=== PATIENT | female | born 1970 | race Caucasian/White ===

== ENCOUNTER 2016-08-11 08:16 | Emergency (ER) | payer OTHER ==
[~2016-08-11] VITALS: Wt 91.0 kg
[~2016-08-11 08:16] MED LIST: HYDR-3498 PO; NAPR-260 PO
[2016-08-11] MEDS ORDERED: ONDANSETRON (ODT) 4 MG TAB ODT STA (10:15)
--- NOTE | 2016-08-11 10:23 | ERD ---
ER Documentation Chief Complaint Date/Time DATE: 08/11/16 TIME: 10:17 Chief Complaint R KNEE PAIN X 3 MONTHS HPI This patient is a 45-year-old female with history of type 2 diabetes and high cholesterol presenting for right knee pain ongoing intermittently for the past 3 months. The patient states it is a burning sensation. The pain is exacerbated by walking. The patient has never had an x-ray of the knee. The patient takes [id number]-[id number] medications with mild relief of symptoms. The patient denies any injury, trauma, inability to walk, numbness, tingling, or other symptoms at this time. ROS All systems reviewed and are negative except as per history of present illness. Medications Home Meds Active Scripts Naproxen* (Naprosyn*) 500 Mg Tablet, 500 MG PO BID Y for PAIN AND/OR INFLAMMATION, #20 TAB Prov:PAUL HAWTHORNE PA-C 08/11/16 Hydrocodone/Acetaminophen (Climax 5-325 Tablet) 1 Each Tablet, 1 TAB PO Q6H Y for PAIN, #7 TAB Prov:PAUL HAWTHORNE PA-C 08/11/16 Methylprednisolone* (Medrol* DOSE PACK) 4 Mg/Dose-Pack Tab.ds.pk, 4 MG PO . DIRECTED, #1 PACKET Prov:PAUL HAWTHORNE PA-C 08/11/16 Naproxen* (Naprosyn*) 500 Mg Tablet, 500 MG PO BID Y for PAIN AND/OR INFLAMMATION, #30 TAB Prov:SONAL REYES PA-C 11/19/15 Hydrocodone Bit-Acetaminophen* (Climax*) 5-325 Mg Tab, 1 TAB PO Q6 Y for PAIN, # 15 TAB Prov:SONAL REYES PA-C 11/19/15 Allergies Allergies: Coded Allergies: No Known Allergy (Unverified , 08/11/16) PMhx/Soc History of Surgery: No Anesthesia Reaction: No Hx Neurological Disorder: No Hx Respiratory Disorders: No Hx Cardiac Disorders: No Hx Psychiatric Problems: No Hx Miscellaneous Medical Probl: No Hx Alcohol Use: No Hx Substance Use: No Hx Tobacco Use: No Smoking Status: Never smoker FmHx Noncontributory for chief complaint Physical Exam Vitals Vital Signs Date Time Temp Pulse Resp B/P Pulse Ox O2 Delivery O2 Flow Rate FiO2 08/11/16 11:21 98.3 70 19 126/77 100 Room Air 08/11/16 08:19 98.0 77 18 145/74 99 Physical Exam INITIAL VITAL SIGNS: Reviewed by me. GENERAL: Obese body habitus. Alert and interactive. No acute distress. HEAD: Head is normocephalic and atraumatic. EYES: EOMI. No scleral icterus. No conjunctival injection. ENT: Moist mucosa. NECK: Supple. Full range of motion. RESPIRATORY: Normal respiratory effort. Clear breath sounds bilaterally. No wheezing, rales, or rhonchi. CV: Regular rate and rhythm. Normal S1 S2. No S3 or S4. No murmurs. ABDOMEN: Obese, soft, non-distended, non-tender. No guarding. No rebound. No masses. EXTREMITIES: No deformity. There is tenderness to palpation of the medial joint line of the right knee. There is decreased range of motion of the right knee secondary to pain. All other extremities are normal on exam. SKIN: Warm and dry. NEUROLOGIC: Alert and oriented x 4. Speech is normal. Moves all extremities equally. No motor or sensory deficits noted. Results 24 hrs Laboratory Tests Test 08/11/16 10:36 08/11/16 11:02 Bedside Urine Blood Negative Bedside Urine Glucose (UA) Negative Bedside Urine Ketones (LAB) Negative Bedside Urine Leukocyte Esterase (L Trace Bedside Urine Nitrite (LAB) Negative Bedside Urine Protein (LAB) 1+ Bedside Urine pH (LAB) 7.5 Bedside Glucose 94mg/dL Current Medications Medications (Trade) Dose Ordered Sig/Adelnie Route PRN Reason Start Time Stop Time Status Last Admin Dose Admin Acetaminophen/ Hydrocodone Bitart (Climax (5/325)) 1 tab ONCE ONCE PO 08/11/16 10:30 08/11/16 10:31 DC 08/11/16 10:30 Ondansetron HCl (Zofran Odt) 4 mg ONCE STAT ODT 08/11/16 10:15 08/11/16 10:17 DC 08/11/16 10:30 Procedures/MDM 45-year-old female presents secondary to complaints of right knee pain ongoing for the past 3 months. On physical examination the patient's vitals are within normal limits. Examination of the right knee reveals mild tenderness to palpation of the medial joint line. There is limited extension of the right knee secondary to pain. I have ordered an x-ray of the right knee. The patient was treated in the department with p.o. Climax and p.o. Zofran and was feeling improved on reevaluation. Accu-Chek in the department was 92. Radiology: PROCEDURE: Right knee x-ray CLINICAL INDICATION: Right knee pain. TECHNIQUE: AP and lateral views of the right knee were obtained. COMPARISON: No. FINDINGS: There are osteophytes off of the right medial femoral condyle. A small effusion is noted. The joint spaces are normal. IMPRESSION: 1. Osteoarthritis of the right knee with a small joint space effusion. RPTAT:AAJJ Physician Tray Date Time Electronically viewed and signed by Sen Bryan Physician on 08/11/2016 10:58 At this time I have low suspicion for septic joint, ACL tear, cellulitis, bursitis, septicemia, or other emergent conditions. The patient is stable for outpatient management. The patient was given prescriptions for naproxen, Climax , and Medrol Dosepak. The patient agrees with the diagnosis and discharge plan. The patient was advised to return to the department immediately with any new or worsening symptoms. The patient demonstrates understanding of this information. All questions and concerns were addressed and the patient was hemodynamically stable prior to discharge. The patient was given or so outpatient follow-up. Departure Diagnosis: Primary Impression: Knee pain Laterality: right Chronicity: chronic Qualified Code: M25.561 - Chronic pain of right knee Condition: Stable Patient Instructions: Knee Pain, Uncertain Cause Referrals: WIL BETHEA MD, GEORGE MD BARCOHANA, BABAK MD Additional Instructions: No mas mejor en 2-3 solomon, regresar. Mas peor en 24 horas, regresear rapidamente. Ir a doctor primario in 5-7 solomon. Usar instrucciones cuando eboni medicamento. PAUL HAWTHORNE PA-C Aug 11, 2016 10:23
[2016-08-11] MEDS ORDERED: HYDROCODONE/APAP (5/325) TAB PO ONE (10:30)
[2016-08-11 10:34] LABS: URINE BLOOD (Dip) POC Negative (NEGATIVE)
--- NOTE | 2016-08-11 10:59 | RADRPT ---
PROCEDURE: Right knee x-ray CLINICAL INDICATION: Right knee pain. TECHNIQUE: AP and lateral views of the right knee were obtained. COMPARISON: No. FINDINGS: There are osteophytes off of the right medial femoral condyle. A small effusion is noted. The join t spaces are normal. IMPRESSION: 1. Osteoarthritis of the right knee with a small joint space effusion. RPTAT:AAJJ Physician Tray Date Time Electronically viewed and signed by Sen Bryan Physician on 08/11/2016 10:58 CHANG/
[2016-08-11] MEDS ORDERED: NAPR-260 PO (11:08)
[2016-08-11] MEDS ORDERED: HYDR-906 PO (11:08)
[2016-08-11] MEDS ORDERED: MED4DP PO (11:08)
[2016-08-11 11:21] VITALS: BP 126/77; PULSE 70; RESP 19; TEMP 98.3
== END 2016-08-11 11:21 | disposition home or self-care (01) ==
LOC: FTE 08:16
DX: M25.561 Pain in right knee (principal); E11.9 Type 2 diabetes mellitus without complications; E66.9 Obesity, unspecified
CPT/HCPCS: 73562; 81003; 82962; Z7502; Z7610

== ENCOUNTER 2016-09-12 11:14 | Emergency (ER) | payer OTHER ==
[~2016-09-12] VITALS: Ht 154.9 cm; Wt 90.0 kg
[~2016-09-12 11:14] MED LIST changes: +HYDR-906 PO; +MED4DP PO
[2016-09-12 11:15] VITALS: Ht 154.9 cm; Wt 90.0 kg
--- NOTE | 2016-09-12 13:59 | RADRPT ---
PROCEDURE: XR Knee. CLINICAL INDICATION: Knee pain TECHNIQUE: Three views of the right knee are available for review. COMPARISON: 08/11/2016 FINDINGS: There is mild narrowing of the medial femorotibial compartment with subchondral sclerosis and small marginal osteophyte formation. The lateral and patellofemoral compartments are maintained. No radio graphic evidence for fracture. A large joint effusion is present. IMPRESSION: 1. Mild medial femorotibial compartment arthrosis. 2. No radiographic evidence for fracture. 3. Large joint effusion. If further detail is warranted, consider CT or MRI. RPTAT: VV .Jordan Oh MD, MD Date Time Electronically viewed and signed by .Jordan Oh MD, on 09/12/2016 13:58 .d/
[2016-09-12] MEDS ORDERED: NAPR-260 PO (14:10)
--- NOTE | 2016-09-12 14:33 | ERD ---
ER Documentation Chief Complaint Date/Time DATE: 09/12/16 TIME: 14:28 Chief Complaint right kneee pain x 2 days HPI Patient is a 46-year-old female who presents to the ED with right knee pain 2 days. She states that she does have pain in this knee in the past however states that 2 days ago her daughter was massaging her knee and she felt a pop in her knee. She states that she does have some pain with walking but is able to ambulate. She denies pain above or below her knee. Denies pain in her hip or ankle. Denies fever or chills. Denies redness. Denies hitting her head, passing out or losing consciousness. Denies radiation of pain. Denies leg swelling or leg erythema. Denies recent travel or recent surgeries or use of OCPs. Denies numbness or tingling. No other complaints. ROS All systems reviewed and are negative except as per history of present illness. Medications Home Meds Active Scripts Naproxen* (Naprosyn*) 500 Mg Tablet, 500 MG PO BID Y for PAIN AND/OR INFLAMMATION, #30 TAB Prov:SHYANNE COLEMAN PA-C 09/12/16 Naproxen* (Naprosyn*) 500 Mg Tablet, 500 MG PO BID Y for PAIN AND/OR INFLAMMATION, #20 TAB Prov:PAUL HAWTHORNE PA-C 08/11/16 Hydrocodone/Acetaminophen ([place] 5-325 Tablet) 1 Each Tablet, 1 TAB PO Q6H Y for PAIN, #7 TAB Prov:PAUL HAWTHORNE PA-C 08/11/16 Methylprednisolone* (Medrol* DOSE PACK) 4 Mg/Dose-Pack Tab.ds.pk, 4 MG PO . DIRECTED, #1 PACKET Prov:PAUL HAWTHORNE PA-C 08/11/16 Naproxen* (Naprosyn*) 500 Mg Tablet, 500 MG PO BID Y for PAIN AND/OR INFLAMMATION, #30 TAB Prov:SONAL REYES PA-C 11/19/15 Hydrocodone Bit-Acetaminophen* ([place]*) 5-325 Mg Tab, 1 TAB PO Q6 Y for PAIN, # 15 TAB Prov:SONAL REYES PA-C 11/19/15 Allergies Allergies: Coded Allergies: No Known Allergy (Unverified , 08/11/16) PMhx/Soc History of Surgery: No Anesthesia Reaction: No Hx Neurological Disorder: No Hx Respiratory Disorders: No Hx Cardiac Disorders: No Hx Psychiatric Problems: No Hx Miscellaneous Medical Probl: No Hx Alcohol Use: No Hx Substance Use: No Hx Tobacco Use: No Smoking Status: Never smoker FmHx Family History: No coronary disease, No diabetes, No other Physical Exam Vitals Vital Signs Date Time Temp Pulse Resp B/P Pulse Ox O2 Delivery O2 Flow Rate FiO2 09/12/16 11:15 98.1 89 18 138/78 99 Physical Exam GENERAL: Well-developed, well-nourished female. Appears in no acute distress. LUNG: Clear to auscultation bilaterally. No rhonchi, wheezing, rales or coarse breath sounds. HEART: Regular rate and rhythm. No murmurs, rubs or gallops. ORTHO: No redness to the right knee. Slight swelling. Negative Homans sign. No calf swelling or redness. No pain above or below the knee. Range of motion intact bilaterally. Pulses intact bilaterally. Extremities: Equal pulses bilaterally. No peripheral clubbing, cyanosis or edema. No unilateral leg swelling. NEUROLOGIC: Alert and oriented. Moving all four extremities. 5/5 strength in all extremities. Normal speech. Steady gait. SKIN: Normal color. Warm and dry. No rashes or lesions. Capillary refill < 2 seconds Procedures/MDM ER COURSE: I kept the patient and/or family informed of laboratory and diagnostic imaging results throughout the emergency room course. IMAGING STUDIES [place] [id number] Radiology Main Line: [phone] DIAGNOSTIC IMAGING REPORT Patient: KISHA TAFOYA : 1970 Age: 46 Sex: F MR #: [id number] DOS: 09/12/16 1328 Ordering MD: SHYANNE COLEMAN PA-C Location: [facility] Room/Bed: PROCEDURE: XR Knee. CLINICAL INDICATION: Knee pain TECHNIQUE: Three views of the right knee are available for review. COMPARISON: 08/11/2016 FINDINGS: There is mild narrowing of the medial femorotibial compartment with subchondral sclerosis and small marginal osteophyte formation. The lateral and patellofemoral compartments are maintained. No radiographic evidence for fracture. A large joint effusion is present. IMPRESSION: 1. Mild medial femorotibial compartment arthrosis. 2. No radiographic evidence for fracture. 3. Large joint effusion. If further detail is warranted, consider CT or MRI. RPTAT: VV .Jordan Oh MD, MD Date Time Electronically viewed and signed by .Jordan Oh MD, MD on 09/12/2016 13:58 .d/ CC: SHYANNE COLEMAN PA-C PROCEDURES [Daquan wrap Assessment: Neurovascularly intact post daquan wrap placement with good fit.] Patient's extremity symptoms have stabilized while they have been evaluated in the department and are appropriate for outpatient follow up. MEDICAL DECISION MAKING: This is a 46-year-old female who presents with right knee pain 2 days. Vital signs were reviewed. Patient is afebrile. Patient is not hypoxic. Patient is not toxic or ill-appearing. Patient has knee joint effusion. Patient did not want medications in the ED as she is taking [place] for her pain at home. Low suspicion for dislocation, fracture, septic joint, compartment syndrome, osteomyelitis, avascular necrosis, DVT, Achilles tendon rupture, cellulitis, ACL rupture. At this time, unable to rule out any tendon and ligament injuries. DISCHARGE: At this time, patient is stable for discharge and outpatient management with no new complaints during the ER course. Patient was sent home with Daquan wrap, crutches and a copy of her x-ray report, Naprosyn and to follow-up with orthopedics this week.. Patient will be discharged home with instructions to recheck for new or worsening symptoms such as fever, nausea, weakness, LOC and to follow up with primary care in the next 1-2 days. Patient was advised to return to the ER for any new or worsening symptoms. Plan was discussed and patient and/or family understands and agrees. Home instructions were given. Departure Diagnosis: Primary Impression: Knee pain Laterality: right Chronicity: unspecified Qualified Code: M25.561 - Right knee pain, unspecified chronicity Condition: Stable Patient Instructions: Knee Effusion Additional Instructions: Llame al doctor MAANA y gilma alina JAYLENE PARA DENTRO DE 1-2 AMARAL.Dgale a la secretaria que nosotros le instruimos hacer esta jaylene.Avise o llame si alston condicin se empeora antes de la jaylene. Regresa aqui si peor o no mejor. SHYANNE COLEMAN PA-C Sep 12, 2016 14:33
[2016-09-12 14:43] VITALS: BP 140/72; PULSE 18; RESP 18; TEMP 98.2
== END 2016-09-12 14:43 | disposition home or self-care (01) ==
LOC: FTE 11:14
DX: S89.91XA Unspecified injury of right lower leg, initial encounter (principal); X50.9XXA Other and unspecified overexertion or strenuous movements or postures, initial encounter; Y92.9 Unspecified place or not applicable
CPT/HCPCS: 73562; Z7502

== ENCOUNTER 2018-08-30 09:39 | Emergency (ER) | payer OTHER ==
[~2018-08-30] VITALS: Ht 154.9 cm; Wt 118.4 kg
[~2018-08-30 09:39] MED LIST changes: +HYDR-4011 PO; -HYDR-906 PO; -NAPR-260 PO; +NAPR-985 PO
[2018-08-30 09:43] VITALS: BP 163/83; PULSE 101; RESP 18; Ht 154.9 cm; Wt 118.4 kg
[2018-08-30] MEDS ORDERED: KETOROLAC 30 MG INJ IM STA (10:35)
[2018-08-30] MEDS ORDERED: GUAIFENESIN/DM 5ML CUP PO ONE (11:00)
[2018-08-30] MEDS ORDERED: IBUPROFEN 600 MG TAB PO ONE (11:00)
--- NOTE | 2018-08-30 11:19 | ERD ---
ER Documentation Chief Complaint Chief Complaint right upper back pain and cough x 2 weeks, HPI 48-year-old female with no reported past medical or surgical history who presented 2 weeks of complaint of cough subjective fevers and chills as well as back pain. Cough is nonproductive. Back pain is right sided and made worse with coughing as well as movement. No reported injury. She denies any red flag symptoms. Has tried ibuprofen at home with some improvement in her pain. She denies any other sick contacts. She otherwise denies nausea vomiting abdominal pain or diarrhea. Denies shortness of breath or dyspnea with exertion. ROS All systems reviewed and are negative except as per history of present illness. Medications Home Meds Active Scripts Guaifenesin* (Robitussin*) 100 Mg/5 Ml Syrup, 200 MG PO Q6H PRN for COUGH for 7 Days, ML Prov:SPEEDY HEREDIA PA-C 08/30/18 Ibuprofen* (Motrin*) 600 Mg Tab, 600 MG PO Q6, #14 TAB Prov:SPEEDY HEREDIA PA-C 08/30/18 Naproxen* (Naprosyn*) 500 Mg Tablet, 500 MG PO BID PRN for PAIN AND/OR INFLAMMATION, #30 TAB Prov:MISSY DENSONC 10/19/17 Naproxen* (Naprosyn*) 500 Mg Tablet, 500 MG PO BID PRN for PAIN AND/OR INFLAMMATION, #30 TAB Prov:SHYANNE COLEMAN PA-C 09/12/16 Naproxen* (Naprosyn*) 500 Mg Tablet, 500 MG PO BID PRN for PAIN AND/OR INFLAMMATION, #20 TAB Prov:PAUL HAWTHORNE PA-C 08/11/16 Hydrocodone/Acetaminophen ([place] 5-325 Tablet) 1 Each Tablet, 1 TAB PO Q6H PRN for PAIN, #7 TAB Prov:PAUL HAWTHORNE PA-C 08/11/16 Methylprednisolone* (Medrol* DOSE PACK) 4 Mg/Dose-Pack Tab.ds.pk, 4 MG PO . DIRECTED, #1 PACKET Prov:PAUL HAWTHORNE PA-C 08/11/16 Naproxen* (Naprosyn*) 500 Mg Tablet, 500 MG PO BID PRN for PAIN AND/OR INFLAMMATION, #30 TAB Prov:SONAL REYES PA-C 11/19/15 Hydrocodone Bit-Acetaminophen* ([place]*) 5-325 Mg Tab, 1 TAB PO Q6 PRN for PAIN, #15 TAB Prov:SONAL REYES PA-C 11/19/15 Allergies Allergies: Coded Allergies: No Known Allergy (Unverified , 08/11/16) PMhx/Soc History of Surgery: Yes (Tubal Ligation) Anesthesia Reaction: No Hx Neurological Disorder: No Hx Respiratory Disorders: No Hx Cardiac Disorders: No Hx Psychiatric Problems: No Hx Miscellaneous Medical Probl: No Hx Alcohol Use: No Hx Substance Use: No Hx Tobacco Use: No Smoking Status: Never smoker FmHx Family History: No diabetes, No coronary disease, No other Physical Exam Vitals Vital Signs Date Temp Pulse Resp B/P (MAP) Pulse Ox O2 O2 Flow FiO2 Time Delivery Rate 08/30/18 99.5 101 18 163/83 96 09:43 (109) Physical Exam I have reviewed the triage vital signs. Const: Well nourished, well developed, appears stated age Eyes: PERRL, no conjunctival injection HENT: NCAT, Neck supple without meningismus CV: RRR, Warm, well-perfused extremities RESP: CTAB, Unlabored respiratory effort GI: soft, non-tender, non-distended, no masses MSK: No gross deformities appreciated. no paraspinal tenderness Skin: Warm, dry. No rashes Neuro: Alert, trimmer sawyer II-XII grossly intact. Sensation and motor function of extremities grossly intact. Psych: Appropriate mood and affect. Results 24 hrs Laboratory Tests Test 08/30/18 11:28 POC Beta HCG, Qualitative NEGATIVE Current Medications Medications Dose Sig/Adeline Start Time Status Last (Trade) Ordered Route PRN Stop Time Admin Dose Reason Admin Ketorolac 30 mg ONCE STAT 08/30/18 DC 08/30/18 Tromethamine IM 10:35 08/30/18 11:35 (Toradol) 10:39 10 ml ONCE ONCE 08/30/18 DC 08/30/18 Guaifenesin/ PO 11:00 08/30/18 10:54 Dextromethorp 11:01 rubi (Robitussin Dm Liquid Cup) Ibuprofen 600 mg ONCE ONCE 08/30/18 DC 08/30/18 (Motrin) PO 11:00 08/30/18 10:46 11:01 Procedures/MDM The patient's clinical presentation is very consistent with an acute viral syndrome. No evidence of pneumonia. The patient is well-appearing without respiratory distress. Normal oxygen satu ration. X-ray imaging not indicated. No indication for Tamiflu. The patient does not exhibit any clinical signs or symptoms concerning for serious bacterial infection or systemic illness. Based on history and clinical exam findings the patient does not appear to have evidence of pneumonia, strep pharyngitis, urinary tract infection, bacteremia, sepsis, meningitis. For these reasons I do not believe it is necessary to obtain laboratory testing or diagnostic imaging. I believe it would be appropriate for symptom control, and close outpatient primary care follow-up. Back pain is likely from persistent coughing. No history of injury and red flag symptoms. ED course; pain control, antitussives We discussed follow up with the patient's primary care doctor within 24 to 48 hours as needed. We also discussed return to the emergency room for worsening symptoms or worsening condition. Departure Condition: Stable Patient Instructions: Adult Self-Care for Colds, Back Pain (Acute Or Chronic) Referrals: [facility] Additional Instructions: Return to ED or go to your primary care provider if symptoms worsen or do not improve in 1-2 days. SPEEDY HEREDIA PA-C Aug 30, 2018 11:19
[2018-08-30] MEDS ORDERED: GUAI-637 PO (11:27)
[2018-08-30] MEDS ORDERED: IBUP-1542 PO (11:27)
== END 2018-08-30 11:55 | disposition home or self-care (01) ==
LOC: FTE 09:39
DX: M54.6 Pain in thoracic spine (principal)
CPT/HCPCS: 81025; J1885; Z7610; 96372